=== PATIENT | female | born 1935 | race Caucasian/White ===

== ENCOUNTER → 2024-04-04 10:40 | Outpatient (REF) | payer OTHER, SELFPAY | LOC: RAD 10:40 | PROVIDERS: ATTENDING PHYSICIAN Specialist; FAMILY PHYSICIAN Family Medicine | DX: K21.9 Gastro-esophageal reflux disease without esophagitis (principal) | CPT/HCPCS: 74246 ==

== ENCOUNTER 2024-11-28 14:37 | Emergency (ER) | payer OTHER, SELFPAY ==
[2024-11-28 14:49] VITALS: BP 153/109
--- NOTE | 2024-11-28 15:52 | ED.MUSCINJ ---
HPI-Injury
General
Chief Complaint: Fall
Source: patient
Exam Limitations: none
Time Seen by Provider: 11/28/24 15:21
History of Present Illness-Injury
Initial Injury comments:
89-year-old female on [place] presents after trip and fall today. She fell forward hitting her head on the pavement. She noted a laceration to the superior forehead. She notes a slight headache she also notes a left hand and right knee pain. No
other complaints at this time.
Past History
Past History
ED Past Medical History: Arrthythmia (Atrial fib), CHF, HTN, Hypercholesterolemia, Psychiatric (Anxiety, ) and Other (Diverticulitis, UTI, Parotid tumor, )
ED Past Surgical History: Cardiac (Several ablations, pacemaker), Gynecological (Hysterectomy), Orthopedic (Rotator cuff repair) and Other (Parotid tumor removal)
Social History
Tobacco: Non-smoker
Alcohol: Occasional
Drug: None
Personal:
Living: with family
Employment: Retired
Family History
Family History: Other (nc)
Phy Exam
Physical Exam
Physical Exam:
General: Well appearing female NAD
HEENT: NC 2cm superficial laceration superior aspect of the forehead oriented no horizontal direction. Pupils equal round reactive to light TMs normal
Heart: Regular rate and rhythm lungs: Clear no wheeze
Musculoskeletal: C-spine nontender. Left hand mostly tender over the middle finger PIP joint. The right knee is tender anteriorly.
Neurologic: Alert and oriented no facial asymmetry
Injury Course
Orders/Labs/Results
Orders:
Orders
11/28/24 14:39
CT Head W/o Iv Contrast Urgent
Comment:
Reason For Exam: fall, head injury
11/28/24 14:51
CT Cervical Spine W/o Iv Contr Urgent
Comment:
Reason For Exam: fall
11/28/24 15:51
CR Hand - Left Min 3 Views Urgent
Comment:
Reason For Exam: fall
CR Knee- Right 4 Or More View* Urgent
Comment:
Reason For Exam: fall, pain anteriorly
MDM/Problems Addressed
Differential Diagnosis Includes:
Mechanical fall with head strike on Eli[place]. Consider skull fracture intracranial hemorrhage cervical spine fracture concussion contusion. CT of head and cervical spine pending laceration was irrigated copiously with saline and anesthetized with
1% lidocaine with epinephrine.
The wound was then closed in a simple running fashion using 6-0 Prolene sutures. 4 sutures were required to do so did provide hemostasis.
*Critical Care Note
Total Time (30-74mins, 75-104mins- exclusive of procedures): Not Applicable
Update Note
Update Note:
CT of head and cervical spine negative. X-ray left hand and right knee were also negative for fracture. Patient reassured. Wound care instructions were given. Stable for discharge. Admission not indicated
ED Attending Note
-
Portions of this chart may have been created with voice recognition software.� Occasional wrong word or��sound alike� substitutions may have occurred due to the inherent limitations of voice recognition software.
Discharge Plan
Departure
Patient Disposition: Home (Routine Discharge)
Date of Disposition: 11/28/24
Time of Disposition: 17:45
Patient with high blood pressure during this ER visit?: No
Discharge Problem:
Laceration
Instructions: Laceration Repair With Stitches (DC)
Prescriptions:
No Action
multivitamin with folic acid [Tab-A-Dima] 1 TABLET tablet
1 tab PO DAILY
atorvastatin 20 MG tablet
20 mg PO QPM
alprazolam 0.25 MG tablet
0.125 mg PO Q8HPRN PRN (Reason: anxiety)
acetaminophen [Tylenol] 325 MG capsule
325 mg PO PRN PRN (Reason: As Needed)
metoprolol succinate 25 MG tablet extended release 24 hr
25 mg PO DAILY Qty: 90 3RF
apixaban [Eliquis] 5 MG tablet
5 mg PO BID Qty: 60 11RF
Rx Instructions:
HOLD post procedure- OK to resume on 06/22 in PM
fluticasone propionate 1 SPRAY spray,suspension
1 spray intranasal DAILYPRN PRN (Reason: congestion)
amiodarone [Pacerone] 200 MG tablet
100 mg PO DAILY
pantoprazole 40 MG tablet,delayed release (DR/EC)
40 mg PO DAILY Qty: 30 0RF
sucralfate [Carafate] 1 GM/10 ML suspension
1 gm PO QIDPRN PRN (Reason: upper abdominal pain) Qty: 560 0RF
doxycycline hyclate 100 mg capsule
100 mg PO BID Qty: 19 0RF
Referrals:
Salinas Pinzon MD [Family Provider] -
Activity Restrictions/Additional Instructions:
You may ice to the sore spot. Have sutures removed in 5 to 7 days. Take Tylenol if needed for pain. Return if worse otherwise
Interventions
Interventions:
*Risk Screen - Suicide Last Done: 11/28/24 14:49
ED-Musculoskeletal Assessment Last Done: 11/28/24 14:57
ED- Neurological Assessment Last Done: 11/28/24 14:57
ED-Skin Assessment Last Done: 11/28/24 14:57
Discharge Date and Time
Print Language: TAJIK
[2024-11-28 18:11] VITALS: BP 153/88
== END 2024-11-28 18:13 | disposition home or self-care (01) ==
LOC: EMR 14:37
PROVIDERS: EMERGENCY PHYSICIAN Emergency Medicine; FAMILY PHYSICIAN Family Medicine
DX: S01.81XA Laceration without foreign body of other part of head, initial encounter (principal); M25.561 Pain in right knee; M79.642 Pain in left hand; W01.0XXA Fall on same level from slipping, tripping and stumbling without subsequent striking against object, initial encounter; Z79.01 Long term (current) use of anticoagulants
CPT/HCPCS: 99285; 12011; 70450; 72125; 73130; 73564